=== PATIENT | female | born 1990 | race African-American/Black ===

== ENCOUNTER 2022-02-04 21:46 | Inpatient (IN) ==
[2022-02-04] MEDS ORDERED: ONDANSETRON 4 MG/2 ML VIAL IV PRN (21:59)
[2022-02-04] MEDS ORDERED: BUTORPHANOL 2 MG/ML VIAL IV PRN (21:59)
[2022-02-04] MEDS ORDERED: METHYLERGONOVINE 0.2 MG/1 ML AMP IM PRN (21:59)
[2022-02-04] MEDS ORDERED: CARBOPROST TROMETHAMINE 250 MCG/ML AMP IM PRN (21:59)
[2022-02-04] MEDS ORDERED: miSOPROStoL 200 MCG TABLET RECTAL PRN (21:59)
[2022-02-04] MEDS ORDERED: OXYTOCIN/LR 20 UNIT/1,000 ML BAG IV ONE (21:59)
[2022-02-04] MEDS ORDERED: TRANEXAMIC ACID 1,000 MG in SODIUM CHLORIDE 0.9% 100 ML IV PRN (21:59)
[2022-02-04] MEDS ORDERED: LACTATED RINGERS 1,000 ML IV SCH (22:00)
[2022-02-04 22:18] LABS: Basophils % 0.4 % (0.0-0.8); Eosinophils # 0.3 10*3/uL (0.0-0.87); Eosinophils % 2.8 % (0.00-10.9); Hematocrit 29.4 VOL% (35.7-47.0); Hemoglobin 8.5 GM/DL (12.0-16.0); Immature Granulocytes % 0.6 %; Immature Granulocytes Absolute 0.05 #; Lymphocytes # 2.4 10*3/uL (1.4-4.0); Lymphocytes % 26.8 % (21.3-54.2); Mean Corpuscular HGB Conc 28.9 GM/DL (32-36); Mean Corpuscular Volume 73.3 FL (87-102); Mean Platelet Volume 10.5 FL (9.6-12.0); Monocytes # 0.8 10*3/uL (0.11-0.8); Monocytes % 8.9 % (1.7-12.7); NRBC # 0.02 10*3/uL; Neutrophils % 60.5 % (38.7-73.9); Platelet Count 270 T/CUMM (130-400); Red Blood Count 4.01 MC/CUMM (3.8-5.5); Red Cell Distribution Width 17.7 % (9.3-17.3)
[2022-02-04] MEDS ORDERED: MEPERIDINE 25 MG/1 ML VIAL IV PRN (22:24)
[2022-02-05] MEDS ORDERED: OXYTOCIN 10 UNIT/ML VIAL IM ONE (05:12)
[2022-02-05] MEDS ORDERED: OXYTOCIN/LR 30 UNIT/1,000 ML BAG IV ONE (05:13)
[2022-02-05] MEDS ORDERED: diphenhydrAMINE 50 MG/1 ML VIAL IV PRN ×2 (06:29)
[2022-02-05] MEDS ORDERED: hydrOXYzine HCL 25 MG/1 ML VIAL IM PRN (06:29)
[2022-02-05] MEDS ORDERED: ePHEDrine 50 MG/ML VIAL IV PRN (06:29)
[2022-02-05] MEDS ORDERED: NALOXONE 0.4 MG/ML VIAL IV PRN (06:29)
[2022-02-05] MEDS ORDERED: PROMETHAZINE 25 MG/1 ML VIAL IM ONE (06:29)
[2022-02-05] MEDS ORDERED: ONDANSETRON 4 MG/2 ML VIAL IV ONE (06:29)
[2022-02-05] MEDS ORDERED: CITRIC ACID/SODIUM CITRATE 30 ML UDCUP PO ONE (06:30)
[2022-02-05] MEDS ORDERED: fentaNYL 2 MCG/ROPIV 0.2% EPID 100 ML EPIDURAL SCH (06:30)
[2022-02-05] MEDS ORDERED: LACTATED RINGERS 1,000 ML IV SCH (06:30)
[2022-02-05] MEDS ORDERED: FAMOTIDINE 20 MG TABLET PO ONE (06:45)
[2022-02-05] MEDS ORDERED: FAMOTIDINE 20 MG/2 ML VIAL IV ONE ×2 (07:05→07:06)
[2022-02-05] MEDS ORDERED: OXYTOCIN/LR 20 UNIT/1,000 ML BAG IV SCH (09:25)
[2022-02-05 09:33] LABS: Bacteria,Urine Occasional /HPF (Few); Bilirubin,Urine Negative (Negative); Blood, Urine Negative (Negative); Glucose,Urine (UA) Negative (Negative); Ketones,Urine Negative (Negative); Mucus,Urine Many /LPF (Occasional); Nitrite,Urine Negative (Negative); Protein,Urine 30 mg/dL (Negative); RBC,Urine 2 /HPF (0-4); Urine Appearance Slightly Hazy (Clear); Urine Color Amber (Yellow)
[2022-02-05] MEDS ORDERED: miSOPROStoL 200 MCG TABLET ONE (12:19)
[2022-02-05] MEDS ORDERED: CARBOPROST TROMETHAMINE 250 MCG/ML AMP IM ONE (12:20)
[2022-02-05] MEDS ORDERED: TRANEXAMIC ACID 1,000 MG/10 ML VIAL ONE (12:20)
[2022-02-05] MEDS ORDERED: METHYLERGONOVINE 0.2 MG/1 ML AMP ONE (12:20)
[2022-02-05] MEDS ORDERED: SODIUM CHLORIDE 0.9% 0 ML IV ONE (12:20)
[2022-02-05 13:44] LABS: Cord Arterial Blood HCO3 18.7 MMOL/L
[2022-02-05 13:46] LABS: Cord Venous Blood HCO3 19.5 MMOL/L; Cord Venous Blood PCO2 39.9 MMHG; Cord Venous Blood PO2 42.4
[2022-02-05] MEDS ORDERED: ACETAMINOPHEN 325 MG TABLET PO PRN (17:24)
[2022-02-05] MEDS ORDERED: oxyCODONE/ACETAMINOPHEN 5-325 MG TABLET PO PRN ×2 (17:24)
[2022-02-05] MEDS ORDERED: RHO(D) IMMUNE GLOBULIN 300 MCG SYRINGE IM ONE (17:24)
[2022-02-05] MEDS ORDERED: LANOLIN 50% CREAM 0.3 OZ TUBE TOP PRN (17:24)
[2022-02-05] MEDS ORDERED: BENZOCAINE 20%/MENTHOL 0.5% SPRAY 56 GM CAN TOP PRN (17:24)
[2022-02-05] MEDS ORDERED: WITCH HAZEL PADS 100/JAR TOP PRN (17:24)
[2022-02-05] MEDS ORDERED: DIPH/TET/ACEL PERT BOOSTER VACCINE 0.5 ML VIAL IM ONE (17:24)
[2022-02-05] MEDS ORDERED: BISACODYL 10 MG SUPP RECTAL PRN (17:24)
[2022-02-05] MEDS ORDERED: HYDROCORTISONE 2.5% RECTAL CREAM 30 GM TUBE TOP PRN (17:24)
[2022-02-05] MEDS ORDERED: OXYTOCIN/LR 20 UNIT/1,000 ML BAG IV ONE (17:24)
[2022-02-05] MEDS ORDERED: MEASLES/MUMPS/RUBELLA VACCINE 0.5 ML VIAL SUBCUT ONE (17:24)
[2022-02-06] MEDS: IBUPROFEN 800 MG TABLET PO PRN (02:18)
[2022-02-06 06:33] LABS: Basophils % 0.3 % (0.0-0.8); Eosinophils # 0.2 10*3/uL (0.0-0.87); Eosinophils % 1.8 % (0.00-10.9); Hematocrit 24.1 VOL% (35.7-47.0); Hemoglobin 6.9 GM/DL (12.0-16.0); Immature Granulocytes % 0.4 %; Immature Granulocytes Absolute 0.04 #; Lymphocytes % 21.8 % (21.3-54.2); Mean Corpuscular HGB Conc 28.6 GM/DL (32-36); Mean Corpuscular Volume 73.7 FL (87-102); Mean Platelet Volume 10.7 FL (9.6-12.0); Monocytes # 0.7 10*3/uL (0.11-0.8); Monocytes % 7.3 % (1.7-12.7); NRBC # 0.02 10*3/uL; Neutrophils % 68.4 % (38.7-73.9); Platelet Count 200 T/CUMM (130-400); Red Blood Count 3.27 MC/CUMM (3.8-5.5); Red Cell Distribution Width 17.4 % (9.3-17.3); White Blood Count 9.3 T/CUMM (4-12)
[2022-02-06] MEDS ORDERED: SODIUM CHLORIDE 0.9% 1,000 ML IV PRN (07:37)
[2022-02-06 19:34] LABS: Basophils % 0.2 % (0.0-0.8); Eosinophils # 0.3 10*3/uL (0.0-0.87); Eosinophils % 3.1 % (0.00-10.9); Hematocrit 27.2 VOL% (35.7-47.0); Immature Granulocytes % 0.3 %; Immature Granulocytes Absolute 0.03 #; Lymphocytes # 2.5 10*3/uL (1.4-4.0); Lymphocytes % 27.5 % (21.3-54.2); Mean Corpuscular HGB Conc 29.4 GM/DL (32-36); Mean Corpuscular Volume 74.5 FL (87-102); Mean Platelet Volume 10.5 FL (9.6-12.0); Monocytes # 0.7 10*3/uL (0.11-0.8); Neutrophils % 60.9 % (38.7-73.9); Platelet Count 240 T/CUMM (130-400); Red Blood Count 3.65 MC/CUMM (3.8-5.5)
[2022-02-06] MEDS: DOCUSATE SODIUM 100 MG CAPSULE PO SCH (21:11)
[2022-02-07] MEDS: IBUPROFEN 800 MG TABLET PO PRN ×2 (00:22→09:50)
[2022-02-07 07:18] VITALS: BP 128/59
[2022-02-07] MEDS: DOCUSATE SODIUM 100 MG CAPSULE PO SCH (09:49)
== END 2022-02-07 12:25 | disposition home or self-care (01) | DRG 560 ==
LOC: N.LDOUT 21:46 → N.LD 21:48 → N.OB 02-06 08:17
PROVIDERS: ADMIT Obstetrics & Gynecology; ATTEND Obstetrics & Gynecology